=== PATIENT | female | born 1960 | race African-American/Black ===

== ENCOUNTER 2016-11-03 08:27 | Emergency (ER) | payer MEDICARE, MEDICAID ==
[~2016-11-03] VITALS: Ht 165.1 cm; Wt 68.2 kg
[~2016-11-03 08:27] MED LIST: ASPI325T6 PO; BACTRIM DS 8001 TAB PO; CARAFATE 1GM1 G PO; CEPHALEXIN500 M1 PO; DESYREL; DESYREL 100MG100 MG PO; DILAUDID 2MG TAB2 MG PO; ESCITALOPRAM; FLAGYL 250250 MG/TAB PO; FLEXERIL 1010 MG/TAB PO; KLONOPIN 0.5MG0.5 MG PO; LAXATIVE FOR WOM5 MG PO; LIDODERM PATCH TP; LORTAB 10/500 51 TAB PO; METRONIDAZOLE500 MG PO; NAPROSYN500 MG PO; NEOMYCIN SULFA500 MG PO; NORCO 325 MG-101 TAB PO; NORCO 325 MG-51 TAB PO; OXYCODONE10 MG PO; PERCOCET 325 MG1 TA2 PO; PERCOCET 5/321 UDTAB PO; PHENERGAN 25 TA25 MG PO; PREVPAC; PRIL40 PO; SELENIUM SULFI180 ML TP; STOOL SOFTENER100 M2 PO; TETRACYCLINE 250MG; TETRACYCLINE 250MG PO; TRAZODONE HCL100 MG PO; TRAZODONE50 MG PO; UNABLE; VALIUM 5MG T5 MG/TAB PO; VICODIN 5/5001 UDTAB PO; ZOFRAN4 M1 PO
[2016-11-03] MEDS ORDERED: PERCOCET 325 MG1 TA2 PO (09:15)
[2016-11-03 11:29] VITALS: BP 145/111; PULSE 88; TEMP 98
== END 2016-11-03 11:14 | disposition home or self-care (01) ==
LOC: COL.ER 08:27
DX: S70.01XA Contusion of right hip, initial encounter (principal); M54.5 Low back pain; W19.XXXA Unspecified fall, initial encounter; Z91.81 History of falling
CPT/HCPCS: J1170; J1200; J2060

== ENCOUNTER 2017-01-09 16:49 | Emergency (ER) | payer MEDICARE, MEDICAID ==
[~2017-01-09] VITALS: Ht 157.5 cm; Wt 69.5 kg
[2017-01-09 16:55] VITALS: TEMP 98.6
[2017-01-09 18:24] VITALS: BP 140/60; PULSE 105
== END 2017-01-09 18:26 | disposition home or self-care (01) ==
LOC: COL.ER 16:49
DX: G89.29 Other chronic pain (principal); M25.551 Pain in right hip; I10 Essential (primary) hypertension

== ENCOUNTER 2017-01-28 13:03 | Emergency (ER) | payer MEDICARE, MEDICAID ==
[~2017-01-28] VITALS: Ht 157.5 cm; Wt 61.4 kg
[2017-01-28 13:06] VITALS: BP 173/86; PULSE 99; TEMP 98
[2017-01-28] MEDS ORDERED: MOBIC 7.5MG7.5 MG PO (13:08)
== END 2017-01-28 16:12 | disposition home or self-care (01) ==
LOC: COL.ER 13:03
DX: G89.29 Other chronic pain (principal); F11.20 Opioid dependence, uncomplicated; M54.5 Low back pain

== ENCOUNTER → 2017-04-05 | Outpatient (CLI) | payer MEDICARE, MEDICAID ==
[~2017-04-05] MED LIST changes: +MOBIC 7.5MG7.5 MG PO
== END ==
LOC: COL.RAD 08:09
DX: M43.16 Spondylolisthesis, lumbar region (principal); M54.16 Radiculopathy, lumbar region; M48.06 Spinal stenosis, lumbar region

== ENCOUNTER 2017-08-07 10:20 | Emergency (ER) | payer MEDICARE, MEDICAID ==
[~2017-08-07] VITALS: Ht 157.5 cm; Wt 63.6 kg
[2017-08-07 10:34] VITALS: TEMP 98.1
[2017-08-07] MEDS ORDERED: NORCO 325 MG-51 TAB PO (10:39)
[2017-08-07 11:46] VITALS: BP 136/69; PULSE 81
== END 2017-08-07 12:12 | disposition home or self-care (01) ==
LOC: COL.ER 10:20
DX: G89.29 Other chronic pain (principal); M54.5 Low back pain; I25.2 Old myocardial infarction; F32.9 Major depressive disorder, single episode, unspecified; F12.90 Cannabis use, unspecified, uncomplicated; F17.210 Nicotine dependence, cigarettes, uncomplicated; Z90.710 Acquired absence of both cervix and uterus; Z98.890 Other specified postprocedural states
CPT/HCPCS: J1170; J2550

== ENCOUNTER 2017-10-25 09:53 | Emergency (ER) | payer MEDICARE, MEDICAID ==
[~2017-10-25] VITALS: Ht 157.5 cm; Wt 62.3 kg
[~2017-10-25 09:53] MED LIST changes: -AMOXICILLIN 8751 TAB PO; -FLAGYL500 MG PO; -HYSINGLA20 PO; -NORCO 325 MG-7.1 TAB PO; -ZANAFLEX2 MG PO
[2017-10-25 09:56] VITALS: TEMP 98.2
[2017-10-25] MEDS ORDERED: HYSINGLA20 PO (10:00)
[2017-10-25] MEDS ORDERED: FLEXERIL 1010 MG/TAB PO (10:01)
[2017-10-25] MEDS ORDERED: ZANAFLEX2 MG PO (10:03)
[2017-10-25] MEDS ORDERED: AMOXICILLIN 8751 TAB PO (10:04)
[2017-10-25] MEDS ORDERED: FLAGYL500 MG PO (10:04)
[2017-10-25] MEDS ORDERED: NORCO 325 MG-7.1 TAB PO (11:24)
[2017-10-25 11:50] VITALS: BP 155/98; PULSE 90
== END 2017-10-25 12:00 | disposition home or self-care (01) ==
LOC: COL.ER 09:53
DX: M54.5 Low back pain (principal); F32.9 Major depressive disorder, single episode, unspecified; G89.29 Other chronic pain; Z87.39 Personal history of other diseases of the musculoskeletal system and connective tissue; Z98.890 Other specified postprocedural states
CPT/HCPCS: J1170; J2060; J2405

== ENCOUNTER → 2017-10-25 | Outpatient (CLI) | payer MEDICARE, MEDICAID ==
[~2017-10-25] MED LIST changes: +AMOXICILLIN 8751 TAB PO; +FLAGYL500 MG PO; +HYSINGLA20 PO; +NORCO 325 MG-7.1 TAB PO; +ZANAFLEX2 MG PO
[2017-10-25 12:42] LABS: COLLECTION METHOD CLEAN CATCH
[2017-10-25 12:44] LABS: BASO # 0.1 (0.0-0.2); BASO % 0.7 % (0.0-2.0); EOS # 0.1 (0.0-0.7); EOS % 0.8 % (0-4.0); GRAN % 46.7 % (42.2-75.2); HEMATOCRIT 41.9 % (37.0-47.0); HEMOGLOBIN 13.9 g/dl (12.5-16.0); LYMPH # 3.8 (1.2-3.4); LYMPH % 43.7 % (20.0-51.0); MEAN CELL VOLUME 94 fl (80.0-100.0); MEAN CORPUSCULAR HEMOGLOBIN 31 pg (27.0-31.0); MEAN CORPUSCULAR HGB CONC 33 g/dl (33.0-37.0); MEAN PLATELET VOLUME 9.3 fl (7.4-10.4); MONO # 0.7 (0.1-0.6); MONO % 7.9 % (1.7-9.3); PLATELET COUNT 333 K/mm3 (130-400); RED BLOOD COUNT 4.44 M/mm3 (4.10-5.30); REDCELL DISTRIBUTION WIDTH-CV 13.2 % (11.5-14.5)
[2017-10-25 12:49] LABS: MUCOUS Present /lpf; PH 6 (5-8); SQUAMOUS EPITHELIAL 0-2 /hpf; URINE APPEARANCE Clear; URINE BACTERIA None Seen /hpf; URINE BILIRUBIN Negative (NEGATIVE); URINE BLOOD Negative (NEGATIVE); URINE COLOR Yellow; URINE GLUCOSE Negative (NEGATIVE); URINE KETONE Negative (NEGATIVE); URINE LEUKOCYTE ESTERASE Negative (NEGATIVE); URINE NITRATE Negative (NEGATIVE); URINE PROTEIN(semi-quant) Negative (NEGATIVE); URINE RBC 0-2 /hpf
[2017-10-25 12:53] LABS: ALBUMIN 4.5 gm/dL (3.5-5.0); BILIRUBIN,TOTAL 0.6 mg/dL (0.0-1.0); CALCIUM 9.6 mg/dL (8.4-10.2); CREATININE, serum 0.64 mg/dL (0.52-1.25); TOTAL PROTEIN 8.3 gm/dL (6.4-8.2)
[2017-10-25 13:13] LABS: INR 1.1 (0.8-3.0); PROTHROMBIN TIME 12.5 SECONDS (9.7-12.8)
== END ==
LOC: COL.LAB 12:00
PROVIDERS: Emergency Medicine
DX: Z01.810 Encounter for preprocedural cardiovascular examination (principal)

== ENCOUNTER → 2018-02-07 | Outpatient (CLI) | payer MEDICARE, MEDICAID ==
[~2018-02-07] MED LIST changes: +AMOXICILLIN 8751 TAB PO; +FLAGYL500 MG PO; +HYSINGLA20 PO; +NORCO 325 MG-7.1 TAB PO; +ZANAFLEX2 MG PO
== END ==
LOC: COL.RAD 16:34
DX: M96.1 Postlaminectomy syndrome, not elsewhere classified (principal); Z98.1 Arthrodesis status

== ENCOUNTER → 2018-02-07 | Outpatient (CLI) | payer MEDICARE, MEDICAID | LOC: MHCPAIN 15:18 | DX: G89.29 Other chronic pain (principal); M47.817 Spondylosis without myelopathy or radiculopathy, lumbosacral region; M54.16 Radiculopathy, lumbar region; M53.3 Sacrococcygeal disorders, not elsewhere classified; M96.1 Postlaminectomy syndrome, not elsewhere classified | CPT/HCPCS: G0463 ==

== ENCOUNTER → 2018-03-13 | Outpatient (CLI) | payer MEDICARE, MEDICAID | LOC: MHCPAIN 10:02 | DX: G89.29 Other chronic pain (principal); M47.817 Spondylosis without myelopathy or radiculopathy, lumbosacral region; M54.16 Radiculopathy, lumbar region; M53.3 Sacrococcygeal disorders, not elsewhere classified; M96.1 Postlaminectomy syndrome, not elsewhere classified | CPT/HCPCS: G0463 ==

== ENCOUNTER → 2018-04-06 | Outpatient (CLI) | payer MEDICARE, MEDICAID | LOC: COL.RAD 09:21 | DX: M54.2 Cervicalgia (principal) ==

== ENCOUNTER 2018-06-11 10:13 | Emergency (ER) | payer MEDICARE, MEDICAID ==
[~2018-06-11] VITALS: Ht 157.5 cm; Wt 58.2 kg
[2018-06-11 10:20] VITALS: TEMP 98.3
[2018-06-11 12:03] VITALS: BP 154/91; PULSE 88
== END 2018-06-11 12:05 | disposition home or self-care (01) ==
LOC: COL.ER 10:13
DX: G89.29 Other chronic pain (principal); M54.9 Dorsalgia, unspecified; M25.551 Pain in right hip; M25.511 Pain in right shoulder; R40.2412 Glasgow coma scale score 13-15, at arrival to emergency department; W18.39XA Other fall on same level, initial encounter

== ENCOUNTER 2018-08-29 18:33 | Emergency (ER) | payer MEDICARE, MEDICAID ==
[~2018-08-29] VITALS: Ht 157.5 cm; Wt 61.8 kg
[2018-08-29 18:35] VITALS: BP 129/78; PULSE 101; TEMP 98.2
[2018-08-29] MEDS ORDERED: FLAGYL500 MG PO (18:50)
[2018-08-29 19:59] LABS: BASO % 0.4 % (0.0-2.0); EOS # 0.2 (0.0-0.7); EOS % 2.6 % (0-4.0); GRAN # 3.4 (1.4-6.5); GRAN % 49.5 % (42.2-75.2); HEMATOCRIT 37.6 % (37.0-47.0); HEMOGLOBIN 12.4 g/dl (12.5-16.0); LYMPH # 2.7 (1.2-3.4); LYMPH % 38.2 % (20.0-51.0); MEAN CELL VOLUME 97 fl (80.0-100.0); MEAN CORPUSCULAR HEMOGLOBIN 32 pg (27.0-31.0); MEAN CORPUSCULAR HGB CONC 33 g/dl (33.0-37.0); MEAN PLATELET VOLUME 9.3 fl (7.4-10.4); MONO # 0.6 (0.1-0.6); MONO % 9.2 % (1.7-9.3); PLATELET COUNT 228 K/mm3 (130-400); RED BLOOD COUNT 3.88 M/mm3 (4.10-5.30); REDCELL DISTRIBUTION WIDTH-CV 13.1 % (11.5-14.5)
[2018-08-29] MEDS ORDERED: CLEOCIN HC150 MG/CAP PO (20:08)
[2018-08-29 20:14] LABS: CREATININE, serum 0.7 mg/dL (0.52-1.25); POTASSIUM 4.1 mmol/L (3.4-5.0)
== END 2018-08-29 20:24 | disposition home or self-care (01) ==
LOC: COL.ER 18:33
PROVIDERS: Physician Assistant
DX: N75.1 Abscess of Bartholin's gland (principal); Z90.710 Acquired absence of both cervix and uterus

== ENCOUNTER 2018-11-08 08:36 | Emergency (ER) | payer MEDICARE, MEDICAID | END 2018-11-08 10:38 | disposition home or self-care (01) | LOC: COL.ER 08:36 | DX: M25.551 Pain in right hip (principal) ==

== ENCOUNTER 2018-12-05 09:57 | Emergency (ER) | payer MEDICARE, MEDICAID ==
[~2018-12-05] VITALS: Ht 157.5 cm; Wt 61.4 kg
[~2018-12-05 09:57] MED LIST changes: +CLEOCIN HC150 MG/CAP PO
[2018-12-05 09:58] VITALS: TEMP 97.2
[2018-12-05] MEDS ORDERED: VOLTAREN GEL 1%1 TU TOP (10:28)
[2018-12-05 12:26] LABS: BASO % 0.5 % (0.0-2.0); EOS # 0.1 (0.0-0.7); EOS % 0.7 % (0-4.0); GRAN # 4.5 (1.4-6.5); GRAN % 58.1 % (42.2-75.2); HEMATOCRIT 40.2 % (37.0-47.0); HEMOGLOBIN 13.8 g/dl (12.5-16.0); LYMPH # 2.4 (1.2-3.4); LYMPH % 31.6 % (20.0-51.0); MEAN CELL VOLUME 93 fl (80.0-100.0); MEAN CORPUSCULAR HEMOGLOBIN 32 pg (27.0-31.0); MEAN CORPUSCULAR HGB CONC 34 g/dl (33.0-37.0); MEAN PLATELET VOLUME 9.4 fl (7.4-10.4); MONO # 0.7 (0.1-0.6); MONO % 8.8 % (1.7-9.3); PLATELET COUNT 245 K/mm3 (130-400); RED BLOOD COUNT 4.32 M/mm3 (4.10-5.30); REDCELL DISTRIBUTION WIDTH-CV 12.2 % (11.5-14.5)
[2018-12-05 12:36] LABS: ALANINE AMINOTRANSFERASE 21 U/L (9-52); ALBUMIN 4.3 gm/dL (3.5-5.0); ALKALINE PHOSPHATASE 97 U/L (50-136); ANION GAP 9 mmol/L (7-16); AST,SGOT 24 U/L (15-37); BILIRUBIN,TOTAL 0.4 mg/dL (0.0-1.0); BLOOD UREA NITROGEN 8 mg/dL (7-17); CALCIUM 9.4 mg/dL (8.4-10.2); CARBON DIOXIDE 28 mmol/L (22-30); CHLORIDE 104 mmol/L (98-107); GLUCOSE 86 mg/dL (74-106); LIPASE 99 U/L (23-300); POTASSIUM 4.3 mmol/L (3.4-5.0); SODIUM 140 mmol/L (137-145); TOTAL PROTEIN 8.3 gm/dL (6.4-8.2)
[2018-12-05 12:47] LABS: TROPONIN-I < 0.012 ng/mL (0.000-0.035)
[2018-12-05] MEDS ORDERED: FLONASEALLERGY NS (13:56)
[2018-12-05] MEDS ORDERED: AMOXICILLIN 50500 MG PO (13:56)
[2018-12-05 14:06] VITALS: BP 162/75; PULSE 88
== END 2018-12-05 15:17 | disposition home or self-care (01) ==
LOC: COL.ER 09:57
PROVIDERS: Emergency Medicine
DX: J32.0 Chronic maxillary sinusitis (principal); G89.29 Other chronic pain; M25.511 Pain in right shoulder; I10 Essential (primary) hypertension; F41.9 Anxiety disorder, unspecified; F17.210 Nicotine dependence, cigarettes, uncomplicated
CPT/HCPCS: J1170; J1200; J2060; J2550

== ENCOUNTER → 2019-03-07 | Outpatient (CLI) | payer MEDICARE, MEDICAID ==
[~2019-03-07] MED LIST changes: +AMOXICILLIN 50500 MG PO; +FLONASEALLERGY NS; +VOLTAREN GEL 1%1 TU TOP
[2019-03-07 12:52] LABS: BASO % 0.6 % (0.0-2.0); EOS % 0.6 % (0-4.0); GRAN # 3.6 (1.4-6.5); GRAN % 51.7 % (42.2-75.2); LYMPH # 2.6 (1.2-3.4); MEAN CELL VOLUME 95 fl (80.0-100.0); MEAN CORPUSCULAR HEMOGLOBIN 32 pg (27.0-31.0); MEAN CORPUSCULAR HGB CONC 33 g/dl (33.0-37.0); MEAN PLATELET VOLUME 9.5 fl (7.4-10.4); MONO # 0.6 (0.1-0.6); MONO % 8.8 % (1.7-9.3); PLATELET COUNT 281 K/mm3 (130-400); RED BLOOD COUNT 4.43 M/mm3 (4.10-5.30)
[2019-03-07 12:55] LABS: PROTHROMBIN TIME 11.8 SECONDS (9.7-12.8)
[2019-03-07 13:03] LABS: ALBUMIN 4.4 gm/dL (3.5-5.0); BILIRUBIN,TOTAL 0.8 mg/dL (0.0-1.0); CALCIUM 9.6 mg/dL (8.4-10.2); CREATININE, serum 0.57 (0.52-1.25); POTASSIUM 3.9 mmol/L (3.4-5.0); TOTAL PROTEIN 8.5 gm/dL (6.4-8.2)
[2019-03-07 13:35] LABS: THYROID STIMULATING HORMONE 0.62 uIU/mL (0.465-4.680)
== END ==
LOC: COL.LAB 11:35
PROVIDERS: Emergency Medicine
DX: Z01.812 Encounter for preprocedural laboratory examination (principal); R63.4 Abnormal weight loss; Z98.890 Other specified postprocedural states

== ENCOUNTER → 2019-03-25 | Outpatient (CLI) | payer MEDICARE, MEDICAID | LOC: ZCOL.LAB 19:20 | DX: Z01.89 Encounter for other specified special examinations (principal) ==

== ENCOUNTER → 2019-03-25 | Outpatient (CLI) | payer MEDICARE, MEDICAID ==
[2019-03-25 19:21] LABS: COLLECTION METHOD CLEAN CATCH
[2019-03-25 19:27] LABS: MUCOUS Present /lpf; PH 5 (5-8); SQUAMOUS EPITHELIAL 0-2 /hpf; URINE APPEARANCE Clear; URINE BACTERIA Rare /hpf; URINE BILIRUBIN Negative (NEGATIVE); URINE BLOOD Negative (NEGATIVE); URINE COLOR Yellow; URINE GLUCOSE 3+ (NEGATIVE); URINE KETONE Negative (NEGATIVE); URINE LEUKOCYTE ESTERASE Negative (NEGATIVE); URINE NITRATE Negative (NEGATIVE); URINE PROTEIN(semi-quant) Negative (NEGATIVE); URINE UROBILINOGEN Negative (NEGATIVE)
== END ==
LOC: COL.PUL 16:39 → COL.LAB 16:39
PROVIDERS: Internal Medicine
DX: Z01.812 Encounter for preprocedural laboratory examination (principal)
CPT/HCPCS: J0690; J1100; J2250; J2405; J2704; J2795; J3010; J7120

== ENCOUNTER 2019-03-26 08:33 | Day surgery (SDC) | payer MEDICARE, MEDICAID ==
[2019-03-26] VITALS (9 sets, daily range): BP systolic 121–173; BP diastolic 75–96; PULSE 71–80; TEMP 97.5–98
[~2019-03-26] VITALS: Ht 157.5 cm; Wt 59.1 kg
--- NOTE | 2019-03-26 09:01 | NUR ---
Patient states "I have a blood pressure medication but I don't take it very often". Patient does not know the name of said medication, and it is not on file with her preferred pharmacy. She states the last time she took it was over 1 week ago. Will notify anesthesia provider.
--- NOTE | 2019-03-26 11:00 | NUR ---
Patient rounding completed. Patient denies any needs at this time.
--- NOTE | 2019-03-26 15:50 | NUR ---
Patient arrives back from PACU at this time alert, denies nausea. Complains of 9/10 pain in her right hand. Reports that it feels like it is getting "poked" with a bunch of needles. Patient's right hand is warmer to the touch compared to her left hand. Right hand capillary refill is less than 2 seconds. Patient monitor applied, vitals stable (blood pressure elevated as it was in PACU). Moise Anand RECRUITING TEAM LEAD contacted to go over patient's symptoms, he advises to adminsiter a Tramadol tablet at this time.
--- NOTE | 2019-03-26 16:19 | NUR ---
Patient requests to use the restroom. Assisted to restroom where she voids. Returns to room.
--- NOTE | 2019-03-26 16:50 | NUR ---
Anesthesia and ROSIE Mcgowan paged at this time.
--- NOTE | 2019-03-26 17:20 | NUR ---
On the phone with ROSIE Mcgowan at this time. Jimenez Banda CRNA also on the phone with ROSIE Mcgowan.
--- NOTE | 2019-03-26 17:22 | NUR ---
Jimenez Banda, BREAD OVEN OPERATOR into see patient at this time.
--- NOTE | 2019-03-26 17:25 | NUR ---
Patient up to restroom at this time.
--- NOTE | 2019-03-26 17:30 | NUR ---
Patient to PACU at this time for anesthesia to administer a new nerve block.
--- NOTE | 2019-03-26 17:45 | NUR ---
Patient back to [facility] [place] at this time. Vital signs stable (blood pressure lower), and patient reports no more pain in right hand.
--- NOTE | 2019-03-26 17:52 | NUR ---
Patient is resting comfortably in her room after receiving block. She is attempting to contact a ride home. Denies any pain, nausea, or need.
--- NOTE | 2019-03-26 18:09 | NUR ---
Patient denies any pain, nausea, or need. Requests to be discharged. VSS and WNL on room air. Neurovascular assessment on RUE is WNL. PIV removed with catheter intact and hemostasis achieved. Assisted patient to change to clothing. Sling in place. Discharge instructions discussed, denies any questions, and verbalizes understanding. Escorted to exit via wheelchair and discharged to home with ride in private vehicle at [id number].
== END 2019-03-26 18:09 | disposition home or self-care (01) ==
LOC: SDCO 08:33
DX: S46.011A Strain of muscle(s) and tendon(s) of the rotator cuff of right shoulder, initial encounter (principal); M19.90 Unspecified osteoarthritis, unspecified site; I11.0 Hypertensive heart disease with heart failure; I50.9 Heart failure, unspecified; F17.210 Nicotine dependence, cigarettes, uncomplicated; I25.10 Atherosclerotic heart disease of native coronary artery without angina pectoris; I25.2 Old myocardial infarction; J45.909 Unspecified asthma, uncomplicated; K21.9 Gastro-esophageal reflux disease without esophagitis; G40.909 Epilepsy, unspecified, not intractable, without status epilepticus; G89.29 Other chronic pain; Z88.5 Allergy status to narcotic agent; Z88.6 Allergy status to analgesic agent; Z85.43 Personal history of malignant neoplasm of ovary; Z90.710 Acquired absence of both cervix and uterus; Z82.49 Family history of ischemic heart disease and other diseases of the circulatory system; Z84.1 Family history of disorders of kidney and ureter; Z80.9 Family history of malignant neoplasm, unspecified; Z82.61 Family history of arthritis; Z88.1 Allergy status to other antibiotic agents; Z91.048 Other nonmedicinal substance allergy status; Z90.5 Acquired absence of kidney; Z86.73 Personal history of transient ischemic attack (TIA), and cerebral infarction without residual deficits; G89.18 Other acute postprocedural pain
CPT/HCPCS: A4566; A4619; C1713; J0171; J1170; J3010; J7120

== ENCOUNTER 2019-03-27 13:06 | Emergency (ER) | payer MEDICARE, MEDICAID ==
[~2019-03-27] VITALS: Ht 157.5 cm; Wt 59.5 kg
[2019-03-27 16:02] VITALS: BP 125/60; PULSE 80; TEMP 98.6
== END 2019-03-27 16:29 | disposition home or self-care (01) ==
LOC: COL.ER 13:06
DX: G89.29 Other chronic pain (principal); M25.511 Pain in right shoulder; F41.9 Anxiety disorder, unspecified; F17.210 Nicotine dependence, cigarettes, uncomplicated
CPT/HCPCS: J1170; J2060

== ENCOUNTER 2021-04-06 14:10 | Emergency (ER) | payer MEDICARE, MEDICAID ==
[2021-04-06] MEDS ORDERED: NORCO 325 MG-51 TAB PO (18:08)
[2021-04-06] MEDS ORDERED: PREDNISONE20 MG PO (18:08)
[2021-04-06] MEDS ORDERED: SYMJEPI0.3 MG/0.3 IJ (18:11)
[2021-04-06 18:27] VITALS: BP 144/82; PULSE 96
== END 2021-04-06 18:30 | disposition home or self-care (01) ==
LOC: COL.ER 14:10
DX: T63.461A Toxic effect of venom of wasps, accidental (unintentional), initial encounter (principal); T78.2XXA Anaphylactic shock, unspecified, initial encounter; L53.8 Other specified erythematous conditions; I10 Essential (primary) hypertension; F17.200 Nicotine dependence, unspecified, uncomplicated
CPT/HCPCS: J1885

== ENCOUNTER 2021-05-10 10:39 | Emergency (ER) | payer MEDICARE, MEDICAID ==
[~2021-05-10] VITALS: Ht 157.5 cm; Wt 60.0 kg
[~2021-05-10 10:39] MED LIST changes: +PREDNISONE20 MG PO; +SYMJEPI0.3 MG/0.3 IJ
[2021-05-10 10:41] VITALS: BP 142/73; PULSE 89; TEMP 97.5
== END 2021-05-10 11:08 | disposition left against medical advice (07) ==
LOC: COL.ER 10:39
DX: M54.5 Low back pain (principal); G89.29 Other chronic pain; F17.210 Nicotine dependence, cigarettes, uncomplicated

== ENCOUNTER → 2022-05-31 | Outpatient (CLI) | payer MEDICARE, MEDICAID | LOC: COL.RAD 08:45 | DX: M47.26 Other spondylosis with radiculopathy, lumbar region (principal); Z98.1 Arthrodesis status ==

== ENCOUNTER 2022-12-09 09:31 | Emergency (ER) | payer MEDICARE, MEDICAID ==
[~2022-12-09] VITALS: Ht 157.5 cm; Wt 54.5 kg
[2022-12-09 09:33] VITALS: TEMP 98
[2022-12-09] MEDS ORDERED: LYRICA 75MG CAP75 MG PO (09:39)
[2022-12-09] MEDS ORDERED: NAPROSYN500 MG PO (09:41)
[2022-12-09 11:29] VITALS: BP 150/100; PULSE 88
--- NOTE | 2022-12-09 12:06 | NUR ---
Plastic Card Grader Cardroom met with PAtient at Patient's request to coordinate transport home through [facility]. SW established transport on this day ref #[id number].
== END 2022-12-09 12:00 | disposition home or self-care (01) ==
LOC: COL.ER 09:31
DX: M54.50 Low back pain, unspecified (principal); G89.29 Other chronic pain; Z88.6 Allergy status to analgesic agent
CPT/HCPCS: J1100; J1885; J3360

== ENCOUNTER 2024-04-11 10:59 | Emergency (ER) | payer MEDICARE, MEDICAID ==
[~2024-04-11] VITALS: Ht 157.5 cm; Wt 55.9 kg
[~2024-04-11 10:59] MED LIST changes: +LYRICA 75MG CAP75 MG PO; +PROTONIX 40MG T40 MG PO
[2024-04-11 11:04] VITALS: TEMP 98.3
[2024-04-11] MEDS ORDERED: fentaNYL 50 MCG/ML 2 ML VIAL IV ONE (12:15)
[2024-04-11 12:30] LABS: COLLECTION METHOD CLEAN CATCH
[2024-04-11 12:44] LABS: URINE APPEARANCE CLEAR (CLEAR/HAZY); URINE BLOOD NEGATIVE (NEGATIVE); URINE COLOR YELLOW (YELLOW); URINE GLUCOSE NEGATIVE (NEGATIVE); URINE KETONE NEGATIVE (NEGATIVE); URINE NITRATE NEGATIVE (NEGATIVE); URINE PROTEIN(semi-quant) NEGATIVE (NEGATIVE)
[2024-04-11 12:45] LABS: BASO % 0.5 % (0.0-2.0); EOS % 0.6 % (0.0-4.0); GRAN # 2.4 K/mm3 (1.4-6.5); GRAN % 37.9 % (42.2-75.2); HEMATOCRIT 45.9 % (37.0-47.0); LYMPH # 3.4 K/mm3 (1.2-3.4); LYMPH % 53.4 % (20.0-51.0); MEAN CELL VOLUME 99 fl (80.0-100.0); MEAN CORPUSCULAR HEMOGLOBIN 32 pg (27-31); MEAN CORPUSCULAR HGB CONC 33 g/dl (33.0-37.0); MEAN PLATELET VOLUME 9.5 fl (7.4-10.4); MONO # 0.5 K/mm3 (0.1-0.6); MONO % 7.4 % (1.7-9.3); PLATELET COUNT 257 K/mm3 (130-400); RED BLOOD COUNT 4.64 M/mm3 (4.10-5.30); REDCELL DISTRIBUTION WIDTH-CV 12.5 % (11.5-14.5)
[2024-04-11 12:59] LABS: ALBUMIN 4.2 g/dL (3.4-4.8); BILIRUBIN,TOTAL 0.7 mg/dL (0.2-1.2); CALCIUM 9.3 mg/dL (8.4-10.2); CREATININE, serum 0.74 mg/dL (0.57-1.11); TOTAL PROTEIN 8.4 g/dl (6.2-8.1)
[2024-04-11] MEDS ORDERED: NORCO 325 MG-51 TAB PO (14:06)
[2024-04-11] MEDS ORDERED: FLEXERIL 1010 MG/TAB PO (14:06)
[2024-04-11 14:20] VITALS: BP 170/96; PULSE 77
== END 2024-04-11 14:23 | disposition home or self-care (01) ==
LOC: COL.ER 10:59
PROVIDERS: Family Medicine
DX: G89.29 Other chronic pain (principal); M54.50 Low back pain, unspecified; F17.200 Nicotine dependence, unspecified, uncomplicated
CPT/HCPCS: J3010